=== PATIENT | female | born 1945 | race African-American/Black ===

== ENCOUNTER 2018-04-07 15:02 | Inpatient (IN) ==
[2018-04-07] MEDS ORDERED: PROMETHAZINE 25 MG/1 ML VIAL IM PRN (15:13)
[2018-04-07] MEDS ORDERED: MAGNESIUM HYDROXIDE SUSP 30 ML UDCUP PO PRN (15:13)
[2018-04-07] MEDS ORDERED: ONDANSETRON 4 MG/2 ML VIAL IV PRN (15:13)
[2018-04-07] MEDS ORDERED: cloNIDine 0.1 MG TABLET PO ONE (15:24)
[2018-04-07] MEDS ORDERED: SODIUM CHLORIDE 0.45% 1,000 ML IV SCH (15:30)
[2018-04-07] MEDS ORDERED: FUROSEMIDE 40 MG/4 ML VIAL IV ONE (15:54)
[2018-04-07] MEDS ORDERED: ENOXAPARIN 40 MG/0.4 ML SYRINGE SUBCUT ONE (16:53)
[2018-04-07 18:01] LABS: Basophils % 0.2 % (0.0-0.8); Eosinophils # 0.1 10*3/uL (0.0-0.87); Eosinophils % 1.7 % (0.00-10.9); Hematocrit 39.3 VOL% (35.7-47.0); Hemoglobin 11.9 GM/DL (12.0-16.0); Immature Granulocytes % 0.5 %; Immature Granulocytes Absolute 0.03 #; Lymphocytes # 1.3 10*3/uL (1.4-4.0); Lymphocytes % 19.4 % (21.3-54.2); Mean Corpuscular HGB Conc 30.3 GM/DL (32-36); Mean Corpuscular Hemoglobin 26 PG (27-34); Mean Corpuscular Volume 84.9 FL (87-102); Mean Platelet Volume 10.5 FL (9.6-12.0); Monocytes # 0.4 10*3/uL (0.11-0.8); Monocytes % 6.5 % (1.7-12.7); Neutrophils # 4.6 10*3/uL (1.4-7.4); Neutrophils % 71.7 % (38.7-73.9); Platelet Count 248 T/CUMM (130-400); Red Blood Count 4.63 MC/CUMM (3.8-5.5); White Blood Count 6.4 T/CUMM (4-12)
[2018-04-07] MEDS: AZITHROMYCIN INJ 250 MG in SODIUM CHLORIDE 0.9% 250 ML IV SCH (18:09)
[2018-04-07 18:21] LABS: Bilirubin,Total 0.6 MG/DL (0.2-1.0); Calcium 9.4 MG/DL (8.5-10.1); Osmolality,Calculated 281.1 MOS/KG (273-304); Potassium 3.2 MMOL/L (3.5-5.1); Total Protein 7.9 G/DL (6.4-8.3)
[2018-04-07] MEDS: ALBUTEROL/IPRATROPIUM 3 ML NEB RESP TX SCH (19:57)
[2018-04-07] MEDS: hydrALAZINE 25 MG TABLET PO SCH (21:09)
[2018-04-07] MEDS: FAMOTIDINE 20 MG TABLET PO SCH (21:09)
[2018-04-07] MEDS: cloNIDine 0.1 MG TABLET PO SCH (21:09)
[2018-04-07] MEDS: ENOXAPARIN 40 MG/0.4 ML SYRINGE SUBCUT SCH (21:09)
[2018-04-07] MEDS: DOCUSATE SODIUM 100 MG CAPSULE PO SCH (21:12)
[2018-04-07] MEDS: NITROGLYCERIN 2% OINT 1 INCH/GM PACK TOP SCH (21:13)
[2018-04-07] MEDS ORDERED: POTASSIUM CHLORIDE 20 MEQ TABLET PO ONE (21:40)
[2018-04-07] MEDS ORDERED: MAGNESIUM SULF RIDER 2 GM in PREMIX 1 EACH IV ONE (21:40)
[2018-04-07] MEDS: hydrALAZINE 20 MG/1 ML VIAL IV ONE ×2 (22:24→22:51)
[2018-04-07] MEDS: cloNIDine 0.1 MG TABLET PO ONE ×2 (22:24→23:45)
[2018-04-07 23:34] LABS: Basophils % 0.2 % (0.0-0.8); Eosinophils # 0.2 10*3/uL (0.0-0.87); Hematocrit 36.6 VOL% (35.7-47.0); Hemoglobin 11.2 GM/DL (12.0-16.0); Immature Granulocytes % 0.4 %; Immature Granulocytes Absolute 0.03 #; Lymphocytes # 1.7 10*3/uL (1.4-4.0); Lymphocytes % 20.9 % (21.3-54.2); Mean Corpuscular HGB Conc 30.6 GM/DL (32-36); Mean Corpuscular Hemoglobin 26 PG (27-34); Mean Corpuscular Volume 85.1 FL (87-102); Mean Platelet Volume 10.9 FL (9.6-12.0); Monocytes # 0.6 10*3/uL (0.11-0.8); Monocytes % 7.3 % (1.7-12.7); Neutrophils # 5.7 10*3/uL (1.4-7.4); Neutrophils % 69.2 % (38.7-73.9); Platelet Count 235 T/CUMM (130-400); Red Cell Distribution Width 15.1 % (9.3-17.3); White Blood Count 8.2 T/CUMM (4-12)
[2018-04-07 23:43] LABS: PT Patient Result 10.5 SECS; Partial Thromboplastin Time 30.5 SECS (0-40)
[2018-04-07] MEDS: SODIUM CHLORIDE 0.9% 1,000 ML IV SCH (23:54)
[2018-04-07 23:56] LABS: Alanine Aminotransferase 10 U/L (13-56); Albumin 2.7 G/DL (3.4-5.0); Alkaline Phosphatase 108 U/L (45-117); Aspartate Amino Transferase 11 U/L (0-37); Bilirubin,Total < 0.39 MG/DL (0.2-1.0); Blood Urea Nitrogen 21 MG/DL (7-18); Glucose 104 MG/DL (74-106); Osmolality,Calculated 285.1 MOS/KG (273-304); Potassium 4.1 MMOL/L (3.5-5.1); Sodium 142 MMOL/L (136-145); Total Protein 6.6 G/DL (6.4-8.3)
[2018-04-08] MEDS: ACETAMINOPHEN 325 MG TABLET PO PRN (00:37)
[2018-04-08] MEDS: ALBUTEROL/IPRATROPIUM 3 ML NEB RESP TX SCH ×4 (01:55→19:35)
[2018-04-08] MEDS: traMADol 50 MG TABLET PO PRN ×2 (05:19→08:00)
[2018-04-08 05:46] LABS: Basophils % 0.3 % (0.0-0.8); Eosinophils % 0.4 % (0.00-10.9); Hematocrit 34.8 VOL% (35.7-47.0); Hemoglobin 10.8 GM/DL (12.0-16.0); Immature Granulocytes % 0.3 %; Immature Granulocytes Absolute 0.02 #; Lymphocytes # 1.2 10*3/uL (1.4-4.0); Lymphocytes % 16.9 % (21.3-54.2); Mean Corpuscular Hemoglobin 26 PG (27-34); Mean Corpuscular Volume 83.3 FL (87-102); Mean Platelet Volume 10.7 FL (9.6-12.0); Monocytes # 0.5 10*3/uL (0.11-0.8); Neutrophils # 5.4 10*3/uL (1.4-7.4); Neutrophils % 75.1 % (38.7-73.9); Platelet Count 216 T/CUMM (130-400); Red Blood Count 4.18 MC/CUMM (3.8-5.5); Red Cell Distribution Width 14.9 % (9.3-17.3); White Blood Count 7.2 T/CUMM (4-12)
[2018-04-08 06:00] LABS: Calcium 8.7 MG/DL (8.5-10.1); Osmolality,Calculated 279.5 MOS/KG (273-304); Potassium 3.2 MMOL/L (3.5-5.1)
[2018-04-08] MEDS: hydrALAZINE 20 MG/1 ML VIAL IV PRN (06:15)
[2018-04-08] MEDS: FAMOTIDINE 20 MG TABLET PO SCH ×2 (10:19→20:45)
[2018-04-08] MEDS: hydrALAZINE 25 MG TABLET PO SCH ×2 (10:19→20:45)
[2018-04-08] MEDS: ASPIRIN CHEW 81 MG TABLET PO SCH (10:19)
[2018-04-08] MEDS: NITROGLYCERIN 2% OINT 1 INCH/GM PACK TOP SCH ×2 (10:20→20:49)
[2018-04-08] MEDS: DOCUSATE SODIUM 100 MG CAPSULE PO SCH ×2 (10:20→20:45)
[2018-04-08] MEDS: cloNIDine 0.1 MG TABLET PO SCH ×2 (10:20→20:45)
[2018-04-08] MEDS: POTASSIUM CHLORIDE 20 MEQ TABLET PO SCH ×2 (10:20→20:45)
[2018-04-08] MEDS: DOXAZOSIN 1 MG TABLET PO SCH (10:25)
[2018-04-08] MEDS: POTASSIUM CHLORIDE RIDER 10 MEQ in PREMIX 1 EACH IV PRN ×4 (10:27→17:00)
[2018-04-08 13:57] LABS: Troponin I 0.031 NG/ML (0.00-0.045)
[2018-04-08] MEDS: PANTOPRAZOLE 40 MG TABLET PO SCH (16:59)
[2018-04-08] MEDS: AZITHROMYCIN INJ 250 MG in SODIUM CHLORIDE 0.9% 250 ML IV SCH (17:00)
[2018-04-08] MEDS: ENOXAPARIN 40 MG/0.4 ML SYRINGE SUBCUT SCH (20:45)
[2018-04-09] MEDS: SODIUM CHLORIDE 0.9% 1,000 ML IV SCH ×2 (00:03→23:48)
[2018-04-09] MEDS: ALBUTEROL/IPRATROPIUM 3 ML NEB RESP TX SCH ×4 (00:57→19:56)
[2018-04-09 04:54] LABS: Troponin I 0.026 NG/ML (0.00-0.045)
[2018-04-09 04:57] LABS: Risk Ratio 2.02
[2018-04-09 08:26] LABS: Osmolality,Calculated 277.5 MOS/KG (273-304); Potassium 4.2 MMOL/L (3.5-5.1)
[2018-04-09] MEDS: hydrALAZINE 25 MG TABLET PO SCH (09:46)
[2018-04-09] MEDS: DOCUSATE SODIUM 100 MG CAPSULE PO SCH ×2 (09:46→21:09)
[2018-04-09] MEDS: FAMOTIDINE 20 MG TABLET PO SCH ×2 (09:46→21:09)
[2018-04-09] MEDS: ASPIRIN CHEW 81 MG TABLET PO SCH (09:46)
[2018-04-09] MEDS: PANTOPRAZOLE 40 MG TABLET PO SCH (09:46)
[2018-04-09] MEDS: DOXAZOSIN 1 MG TABLET PO SCH (09:46)
[2018-04-09] MEDS: POTASSIUM CHLORIDE 20 MEQ TABLET PO SCH ×2 (09:46→21:10)
[2018-04-09] MEDS: cloNIDine 0.1 MG TABLET PO SCH ×3 (09:46→21:10)
[2018-04-09] MEDS: NITROGLYCERIN 2% OINT 1 INCH/GM PACK TOP SCH ×2 (09:47→21:09)
[2018-04-09] MEDS: ACETAMINOPHEN 325 MG TABLET PO PRN ×2 (12:15→18:33)
[2018-04-09] MEDS: hydrALAZINE 20 MG/1 ML VIAL IV PRN (12:17)
[2018-04-09] MEDS ORDERED: methylPREDNISolone SOD SUC 40 MG/1 ML VIAL IV ONE (13:21)
[2018-04-09] MEDS ORDERED: MAGNESIUM HYDROXIDE SUSP 30 ML UDCUP PO PRN (13:25)
[2018-04-09] MEDS: traMADol 50 MG TABLET PO PRN ×2 (17:05→22:57)
[2018-04-09] MEDS: AZITHROMYCIN INJ 250 MG in SODIUM CHLORIDE 0.9% 250 ML IV SCH (18:31)
[2018-04-09] MEDS: ENOXAPARIN 40 MG/0.4 ML SYRINGE SUBCUT SCH (21:10)
[2018-04-10] MEDS: ALBUTEROL/IPRATROPIUM 3 ML NEB RESP TX SCH ×4 (00:38→19:18)
[2018-04-10 04:28] LABS: Basophils % 0.3 % (0.0-0.8); Eosinophils % 0.2 % (0.00-10.9); Hematocrit 32.4 VOL% (35.7-47.0); Hemoglobin 9.9 GM/DL (12.0-16.0); Immature Granulocytes % 0.5 %; Immature Granulocytes Absolute 0.03 #; Lymphocytes # 1.3 10*3/uL (1.4-4.0); Mean Corpuscular HGB Conc 30.6 GM/DL (32-36); Mean Corpuscular Hemoglobin 26 PG (27-34); Mean Platelet Volume 11.4 FL (9.6-12.0); Monocytes # 0.5 10*3/uL (0.11-0.8); Neutrophils # 4.5 10*3/uL (1.4-7.4); Platelet Count 207 T/CUMM (130-400); Red Blood Count 3.81 MC/CUMM (3.8-5.5); Red Cell Distribution Width 15.3 % (9.3-17.3); White Blood Count 6.3 T/CUMM (4-12)
[2018-04-10 04:52] LABS: Albumin 3.1 G/DL (3.4-5.0); Bilirubin,Total 0.7 MG/DL (0.2-1.0); Calcium 8.4 MG/DL (8.5-10.1); Osmolality,Calculated 279.4 MOS/KG (273-304); Potassium 4.1 MMOL/L (3.5-5.1); Total Protein 6.5 G/DL (6.4-8.3)
[2018-04-10] MEDS ORDERED: cloNIDine 0.1 MG TABLET PO SCH (06:00)
[2018-04-10] MEDS ORDERED: LISINOPRIL 10 MG TABLET PO SCH (09:00)
[2018-04-10] MEDS: DOCUSATE SODIUM 100 MG CAPSULE PO SCH ×2 (09:02→21:29)
[2018-04-10] MEDS: DOXAZOSIN 1 MG TABLET PO SCH (09:02)
[2018-04-10] MEDS: cloNIDine 0.1 MG TABLET PO SCH ×2 (09:02→21:28)
[2018-04-10] MEDS: ASPIRIN CHEW 81 MG TABLET PO SCH (09:02)
[2018-04-10] MEDS: FAMOTIDINE 20 MG TABLET PO SCH ×2 (09:02→21:28)
[2018-04-10] MEDS: POTASSIUM CHLORIDE 20 MEQ TABLET PO SCH ×2 (09:02→21:28)
[2018-04-10] MEDS: PANTOPRAZOLE 40 MG TABLET PO SCH (09:03)
[2018-04-10] MEDS: NITROGLYCERIN 2% OINT 1 INCH/GM PACK TOP SCH ×2 (09:08→21:29)
[2018-04-10 14:04] LABS: Apearance,Urine CLEAR (Clear); Bilirubin,Urine Negative (Negative); Blood, Urine Negative (Negative); Glucose,Urine (UA) Negative (Negative); Ketones,Urine Negative (Negative); Mucus,Urine Moderate /LPF (Occasional); Nitrite,Urine Negative (Negative); Protein,Urine 100 MG/DL; RBC,Urine 1 /HPF (0-4); Squamous Epithelial Cell,Urine Occasional /HPF (0-10); Urine Color Yellow (Yellow); Urine Specific Gravity 1.017 (1.001-1.035); Urine Urobilinogen < 2.0 EU/DL (0.2-1.0); WBC,Urine 4 /HPF (0-6)
[2018-04-10] MEDS ORDERED: LABETALOL 20 MG/4 ML SYRINGE IV PRN (15:10)
[2018-04-10] MEDS: hydroCHLOROthiazide 12.5 MG CAPSULE PO SCH (17:40)
[2018-04-10] MEDS: AZITHROMYCIN INJ 250 MG in SODIUM CHLORIDE 0.9% 250 ML IV SCH (17:40)
[2018-04-10] MEDS: LISINOPRIL 10 MG TABLET PO SCH (21:28)
[2018-04-10] MEDS: ENOXAPARIN 40 MG/0.4 ML SYRINGE SUBCUT SCH (21:29)
[2018-04-10] MEDS: SODIUM CHLORIDE 0.9% 1,000 ML IV SCH (22:56)
[2018-04-11] MEDS: ALBUTEROL/IPRATROPIUM 3 ML NEB RESP TX SCH ×4 (00:43→19:38)
[2018-04-11] MEDS: DOXAZOSIN 1 MG TABLET PO SCH (08:55)
[2018-04-11] MEDS: FAMOTIDINE 20 MG TABLET PO SCH ×2 (08:55→20:41)
[2018-04-11] MEDS: ASPIRIN CHEW 81 MG TABLET PO SCH (08:55)
[2018-04-11] MEDS: PANTOPRAZOLE 40 MG TABLET PO SCH (08:55)
[2018-04-11] MEDS: POTASSIUM CHLORIDE 20 MEQ TABLET PO SCH ×2 (08:55→20:42)
[2018-04-11] MEDS: DOCUSATE SODIUM 100 MG CAPSULE PO SCH ×2 (08:55→20:41)
[2018-04-11] MEDS: hydroCHLOROthiazide 12.5 MG CAPSULE PO SCH (08:55)
[2018-04-11] MEDS: LISINOPRIL 10 MG TABLET PO SCH ×2 (08:56→20:42)
[2018-04-11] MEDS: cloNIDine 0.1 MG TABLET PO SCH ×2 (08:56→20:41)
[2018-04-11] MEDS: NITROGLYCERIN 2% OINT 1 INCH/GM PACK TOP SCH ×2 (09:02→20:43)
[2018-04-11] MEDS: SPIRONOLACTONE 25 MG TABLET PO SCH (10:47)
[2018-04-11] MEDS: AZITHROMYCIN INJ 250 MG in SODIUM CHLORIDE 0.9% 250 ML IV SCH (17:01)
[2018-04-11] MEDS: ENOXAPARIN 40 MG/0.4 ML SYRINGE SUBCUT SCH (20:56)
[2018-04-12] MEDS: SODIUM CHLORIDE 0.9% 1,000 ML IV SCH ×2 (00:32→23:45)
[2018-04-12] MEDS: ALBUTEROL/IPRATROPIUM 3 ML NEB RESP TX SCH ×4 (01:51→19:50)
[2018-04-12] MEDS: DOXAZOSIN 1 MG TABLET PO SCH (08:34)
[2018-04-12] MEDS: cloNIDine 0.1 MG TABLET PO SCH ×4 (08:35→21:06)
[2018-04-12] MEDS: PANTOPRAZOLE 40 MG TABLET PO SCH (08:35)
[2018-04-12] MEDS: ASPIRIN CHEW 81 MG TABLET PO SCH (08:35)
[2018-04-12] MEDS: NITROGLYCERIN 2% OINT 1 INCH/GM PACK TOP SCH (08:35)
[2018-04-12] MEDS: LISINOPRIL 10 MG TABLET PO SCH (08:35)
[2018-04-12] MEDS: FAMOTIDINE 20 MG TABLET PO SCH ×2 (08:36→21:04)
[2018-04-12] MEDS: DOCUSATE SODIUM 100 MG CAPSULE PO SCH ×2 (08:36→21:06)
[2018-04-12] MEDS: SPIRONOLACTONE 25 MG TABLET PO SCH (08:36)
[2018-04-12] MEDS: POTASSIUM CHLORIDE 20 MEQ TABLET PO SCH ×2 (08:36→21:04)
[2018-04-12] MEDS: hydroCHLOROthiazide 12.5 MG CAPSULE PO SCH (08:36)
[2018-04-12] MEDS ORDERED: CYANOCOBALAMIN 1000 MCG/1 ML VIAL IM ONE (08:58)
[2018-04-12] MEDS: CARVEDILOL 6.25 MG TABLET PO SCH ×2 (12:42→21:08)
[2018-04-12] MEDS: AZITHROMYCIN INJ 250 MG in SODIUM CHLORIDE 0.9% 250 ML IV SCH (18:22)
[2018-04-12] MEDS: LISINOPRIL 20 MG TABLET PO SCH (21:04)
[2018-04-12] MEDS: ENOXAPARIN 40 MG/0.4 ML SYRINGE SUBCUT SCH (21:06)
[2018-04-13] MEDS: ALBUTEROL/IPRATROPIUM 3 ML NEB RESP TX SCH ×4 (01:04→18:50)
[2018-04-13 04:09] LABS: Basophils % 0.6 % (0.0-0.8); Eosinophils # 0.4 10*3/uL (0.0-0.87); Eosinophils % 6.3 % (0.00-10.9); Hematocrit 35.4 VOL% (35.7-47.0); Hemoglobin 10.8 GM/DL (12.0-16.0); Immature Granulocytes % 0.3 %; Immature Granulocytes Absolute 0.02 #; Mean Corpuscular HGB Conc 30.5 GM/DL (32-36); Mean Corpuscular Hemoglobin 26 PG (27-34); Mean Corpuscular Volume 84.3 FL (87-102); Mean Platelet Volume 11.2 FL (9.6-12.0); Monocytes # 0.6 10*3/uL (0.11-0.8); Monocytes % 9.2 % (1.7-12.7); Neutrophils # 3.3 10*3/uL (1.4-7.4); Neutrophils % 51.6 % (38.7-73.9); Platelet Count 222 T/CUMM (130-400); White Blood Count 6.3 T/CUMM (4-12)
[2018-04-13 04:38] LABS: Calcium 8.6 MG/DL (8.5-10.1); Osmolality,Calculated 283.1 MOS/KG (273-304)
[2018-04-13] MEDS ORDERED: cloNIDine 0.1 MG TABLET PO ONE ×2 (05:00→22:00)
[2018-04-13] MEDS: FAMOTIDINE 20 MG TABLET PO SCH ×2 (08:48→20:37)
[2018-04-13] MEDS: DOXAZOSIN 4 MG TABLET PO SCH (08:51)
[2018-04-13] MEDS: hydroCHLOROthiazide 12.5 MG CAPSULE PO SCH (08:51)
[2018-04-13] MEDS: DOCUSATE SODIUM 100 MG CAPSULE PO SCH ×2 (08:52→20:37)
[2018-04-13] MEDS: LISINOPRIL 20 MG TABLET PO SCH (08:52)
[2018-04-13] MEDS: CARVEDILOL 6.25 MG TABLET PO SCH ×2 (08:53→20:37)
[2018-04-13] MEDS: POTASSIUM CHLORIDE 20 MEQ TABLET PO SCH ×2 (08:55→20:37)
[2018-04-13] MEDS: SPIRONOLACTONE 25 MG TABLET PO SCH (08:58)
[2018-04-13] MEDS: ASPIRIN CHEW 81 MG TABLET PO SCH (08:59)
[2018-04-13] MEDS: PANTOPRAZOLE 40 MG TABLET PO SCH (08:59)
[2018-04-13] MEDS: AZITHROMYCIN INJ 250 MG in SODIUM CHLORIDE 0.9% 250 ML IV SCH (18:18)
[2018-04-13] MEDS: ENOXAPARIN 40 MG/0.4 ML SYRINGE SUBCUT SCH (20:43)
[2018-04-13] MEDS: ACETAMINOPHEN 325 MG TABLET PO PRN (20:43)
[2018-04-13] MEDS: SODIUM CHLORIDE 0.9% 1,000 ML IV SCH (22:09)
[2018-04-13] MEDS: traMADol 50 MG TABLET PO PRN (23:11)
[2018-04-14] MEDS: ALBUTEROL/IPRATROPIUM 3 ML NEB RESP TX SCH ×4 (00:20→19:39)
[2018-04-14 04:37] LABS: Basophils % 0.7 % (0.0-0.8); Eosinophils # 0.3 10*3/uL (0.0-0.87); Eosinophils % 4.4 % (0.00-10.9); Hematocrit 35.3 VOL% (35.7-47.0); Hemoglobin 10.9 GM/DL (12.0-16.0); Immature Granulocytes % 0.3 %; Immature Granulocytes Absolute 0.02 #; Lymphocytes # 1.5 10*3/uL (1.4-4.0); Lymphocytes % 24.6 % (21.3-54.2); Mean Corpuscular HGB Conc 30.9 GM/DL (32-36); Mean Corpuscular Hemoglobin 27 PG (27-34); Mean Corpuscular Volume 85.7 FL (87-102); Mean Platelet Volume 11.1 FL (9.6-12.0); Monocytes # 0.5 10*3/uL (0.11-0.8); Monocytes % 8.5 % (1.7-12.7); Neutrophils # 3.8 10*3/uL (1.4-7.4); Neutrophils % 61.5 % (38.7-73.9); Platelet Count 219 T/CUMM (130-400); Red Blood Count 4.12 MC/CUMM (3.8-5.5); Red Cell Distribution Width 14.8 % (9.3-17.3); White Blood Count 6.1 T/CUMM (4-12)
[2018-04-14 04:57] LABS: Calcium 8.5 MG/DL (8.5-10.1); Osmolality,Calculated 283.3 MOS/KG (273-304); Potassium 4.1 MMOL/L (3.5-5.1)
[2018-04-14] MEDS: FAMOTIDINE 20 MG TABLET PO SCH ×2 (08:25→20:53)
[2018-04-14] MEDS: hydroCHLOROthiazide 12.5 MG CAPSULE PO SCH (08:25)
[2018-04-14] MEDS: DOXAZOSIN 4 MG TABLET PO SCH (08:25)
[2018-04-14] MEDS: DOCUSATE SODIUM 100 MG CAPSULE PO SCH ×2 (08:25→20:53)
[2018-04-14] MEDS: SPIRONOLACTONE 25 MG TABLET PO SCH (08:25)
[2018-04-14] MEDS: CARVEDILOL 6.25 MG TABLET PO SCH ×2 (08:25→20:53)
[2018-04-14] MEDS: PANTOPRAZOLE 40 MG TABLET PO SCH (08:26)
[2018-04-14] MEDS: POTASSIUM CHLORIDE 20 MEQ TABLET PO SCH ×2 (08:26→20:53)
[2018-04-14] MEDS: ASPIRIN CHEW 81 MG TABLET PO SCH (08:26)
[2018-04-14] MEDS: MINOXIDIL 2.5 MG TABLET PO SCH ×2 (09:12→20:52)
[2018-04-14] MEDS: cloNIDine 0.1 MG TABLET PO SCH ×2 (09:13→20:52)
[2018-04-14] MEDS: AZITHROMYCIN INJ 250 MG in SODIUM CHLORIDE 0.9% 250 ML IV SCH (17:06)
[2018-04-14] MEDS: ENOXAPARIN 40 MG/0.4 ML SYRINGE SUBCUT SCH (20:56)
[2018-04-15] MEDS: SODIUM CHLORIDE 0.9% 1,000 ML IV SCH ×2 (00:03→22:31)
[2018-04-15] MEDS: ALBUTEROL/IPRATROPIUM 3 ML NEB RESP TX SCH ×4 (01:06→19:36)
[2018-04-15 04:24] LABS: Basophils % 0.4 % (0.0-0.8); Eosinophils # 0.3 10*3/uL (0.0-0.87); Hematocrit 33.5 VOL% (35.7-47.0); Hemoglobin 10.3 GM/DL (12.0-16.0); Immature Granulocytes % 0.4 %; Immature Granulocytes Absolute 0.02 #; Lymphocytes # 1.1 10*3/uL (1.4-4.0); Lymphocytes % 21.1 % (21.3-54.2); Mean Corpuscular HGB Conc 30.7 GM/DL (32-36); Mean Corpuscular Hemoglobin 26 PG (27-34); Mean Corpuscular Volume 85.7 FL (87-102); Mean Platelet Volume 11.6 FL (9.6-12.0); Monocytes # 0.6 10*3/uL (0.11-0.8); Monocytes % 11.1 % (1.7-12.7); Neutrophils # 3.4 10*3/uL (1.4-7.4); Platelet Count 221 T/CUMM (130-400); Red Blood Count 3.91 MC/CUMM (3.8-5.5); Red Cell Distribution Width 14.8 % (9.3-17.3); White Blood Count 5.4 T/CUMM (4-12)
[2018-04-15 04:37] LABS: Calcium 8.5 MG/DL (8.5-10.1); Osmolality,Calculated 280.3 MOS/KG (273-304); Potassium 3.8 MMOL/L (3.5-5.1)
[2018-04-15] MEDS: POTASSIUM CHLORIDE 20 MEQ TABLET PO SCH ×2 (08:33→21:20)
[2018-04-15] MEDS: hydroCHLOROthiazide 12.5 MG CAPSULE PO SCH (08:33)
[2018-04-15] MEDS: FAMOTIDINE 20 MG TABLET PO SCH ×2 (08:33→21:20)
[2018-04-15] MEDS: MINOXIDIL 2.5 MG TABLET PO SCH ×2 (08:33→21:20)
[2018-04-15] MEDS: CLOPIDOGREL 75 MG TABLET PO SCH (08:33)
[2018-04-15] MEDS: DOXAZOSIN 4 MG TABLET PO SCH (08:33)
[2018-04-15] MEDS: CARVEDILOL 6.25 MG TABLET PO SCH ×2 (08:34→21:20)
[2018-04-15] MEDS: cloNIDine 0.1 MG TABLET PO SCH ×2 (08:34→21:20)
[2018-04-15] MEDS: SPIRONOLACTONE 25 MG TABLET PO SCH (08:34)
[2018-04-15] MEDS: DOCUSATE SODIUM 100 MG CAPSULE PO SCH ×2 (08:34→21:25)
[2018-04-15] MEDS: PANTOPRAZOLE 40 MG TABLET PO SCH (08:34)
[2018-04-15] MEDS: AZITHROMYCIN INJ 250 MG in SODIUM CHLORIDE 0.9% 250 ML IV SCH (17:47)
[2018-04-15] MEDS: ENOXAPARIN 40 MG/0.4 ML SYRINGE SUBCUT SCH (21:23)
[2018-04-16] MEDS: ALBUTEROL/IPRATROPIUM 3 ML NEB RESP TX SCH ×2 (00:43→07:35)
[2018-04-16 05:45] LABS: Basophils % 0.6 % (0.0-0.8); Eosinophils # 0.2 10*3/uL (0.0-0.87); Eosinophils % 4.2 % (0.00-10.9); Hematocrit 33.8 VOL% (35.7-47.0); Hemoglobin 10.5 GM/DL (12.0-16.0); Immature Granulocytes % 0.2 %; Immature Granulocytes Absolute 0.01 #; Lymphocytes # 1.7 10*3/uL (1.4-4.0); Lymphocytes % 33.3 % (21.3-54.2); Mean Corpuscular HGB Conc 31.1 GM/DL (32-36); Mean Corpuscular Hemoglobin 27 PG (27-34); Mean Corpuscular Volume 85.4 FL (87-102); Mean Platelet Volume 11.3 FL (9.6-12.0); Monocytes # 0.6 10*3/uL (0.11-0.8); Monocytes % 12.3 % (1.7-12.7); Neutrophils # 2.5 10*3/uL (1.4-7.4); Neutrophils % 49.4 % (38.7-73.9); Platelet Count 222 T/CUMM (130-400); Red Blood Count 3.96 MC/CUMM (3.8-5.5); Red Cell Distribution Width 14.7 % (9.3-17.3); White Blood Count 5.1 T/CUMM (4-12)
[2018-04-16 05:57] LABS: Calcium 8.5 MG/DL (8.5-10.1); Osmolality,Calculated 281.1 MOS/KG (273-304); Potassium 3.5 MMOL/L (3.5-5.1)
[2018-04-16 07:46] VITALS: BP 157/78
[2018-04-16] MEDS: DOXAZOSIN 4 MG TABLET PO SCH (08:41)
[2018-04-16] MEDS: PANTOPRAZOLE 40 MG TABLET PO SCH (08:41)
[2018-04-16] MEDS: MINOXIDIL 2.5 MG TABLET PO SCH (08:41)
[2018-04-16] MEDS: FAMOTIDINE 20 MG TABLET PO SCH (08:41)
[2018-04-16] MEDS: CLOPIDOGREL 75 MG TABLET PO SCH (08:41)
[2018-04-16] MEDS: hydroCHLOROthiazide 12.5 MG CAPSULE PO SCH (08:42)
[2018-04-16] MEDS: DOCUSATE SODIUM 100 MG CAPSULE PO SCH (08:42)
[2018-04-16] MEDS: SPIRONOLACTONE 25 MG TABLET PO SCH (08:42)
[2018-04-16] MEDS: CARVEDILOL 6.25 MG TABLET PO SCH (08:42)
[2018-04-16] MEDS: cloNIDine 0.1 MG TABLET PO SCH (08:42)
[2018-04-16] MEDS: POTASSIUM CHLORIDE 20 MEQ TABLET PO SCH (08:42)
== END 2018-04-16 11:23 | disposition home or self-care (01) | DRG 305 ==
LOC: N.CT 15:02 → UNDODEPREF 15:51 → N.2W 15:51 → N.TELEN 17:37
PROVIDERS: ADMIT Internal Medicine; ATTEND Internal Medicine

== ENCOUNTER 2021-03-18 00:41 | Observation (INO) ==
[2021-03-18] MEDS ORDERED: NITROGLYCERIN SL 0.4 MG TABLET SL PRN (01:10)
[2021-03-18 01:24] LABS: Basophils % 0.5 % (0.0-0.8); Eosinophils # 0.1 10*3/uL (0.0-0.87); Eosinophils % 2.3 % (0.00-10.9); Hematocrit 37.7 VOL% (35.7-47.0); Hemoglobin 12.1 GM/DL (12.0-16.0); Immature Granulocytes % 0.4 %; Immature Granulocytes Absolute 0.02 #; Lymphocytes # 1.4 10*3/uL (1.4-4.0); Lymphocytes % 24.9 % (21.3-54.2); Mean Corpuscular HGB Conc 32.1 GM/DL (32-36); Mean Corpuscular Volume 85.7 FL (87-102); Mean Platelet Volume 10.1 FL (9.6-12.0); Monocytes % 8.8 % (1.7-12.7); Neutrophils % 63.1 % (38.7-73.9); Platelet Count 202 T/CUMM (130-400); Red Cell Distribution Width 14.6 % (9.3-17.3); White Blood Count 5.7 T/CUMM (4-12)
[2021-03-18] MEDS ORDERED: ONDANSETRON 4 MG/2 ML VIAL IV PRN (01:28)
[2021-03-18] MEDS ORDERED: ACETAMINOPHEN 325 MG TABLET PO PRN (01:28)
[2021-03-18 01:34] LABS: Albumin 3.8 G/DL (3.4-5.0); Bilirubin,Total 0.6 MG/DL (0.20-1.00); Osmolality,Calculated 278.7 MOS/KG (273-304); Potassium 4.1 MMOL/L (3.5-5.1); Total Protein 7.4 G/DL (6.4-8.2)
[2021-03-18 04:02] LABS: PT Patient Result 11.4 SECS (10.5-12.0)
[2021-03-18 05:53] LABS: Basophils % 0.4 % (0.0-0.8); Eosinophils # 0.1 10*3/uL (0.0-0.87); Eosinophils % 2.1 % (0.00-10.9); Hematocrit 34.3 VOL% (35.7-47.0); Hemoglobin 11.1 GM/DL (12.0-16.0); Immature Granulocytes % 0.2 %; Immature Granulocytes Absolute 0.01 #; Lymphocytes # 1.4 10*3/uL (1.4-4.0); Lymphocytes % 29.8 % (21.3-54.2); Mean Corpuscular HGB Conc 32.4 GM/DL (32-36); Mean Corpuscular Volume 85.1 FL (87-102); Mean Platelet Volume 10.7 FL (9.6-12.0); Monocytes % 10.1 % (1.7-12.7); Neutrophils % 57.4 % (38.7-73.9); Platelet Count 193 T/CUMM (130-400); Red Blood Count 4.03 MC/CUMM (3.8-5.5); Red Cell Distribution Width 14.5 % (9.3-17.3); White Blood Count 4.8 T/CUMM (4-12)
[2021-03-18 06:19] LABS: Albumin 3.3 G/DL (3.4-5.0); Bilirubin,Total 0.5 MG/DL (0.20-1.00); Calcium 8.7 MG/DL (8.5-10.1); Osmolality,Calculated 283.3 MOS/KG (273-304); Potassium 3.8 MMOL/L (3.5-5.1); Total Protein 6.6 G/DL (6.4-8.2)
[2021-03-18] MEDS: PANTOPRAZOLE 40 MG TABLET PO SCH (09:02)
[2021-03-18] MEDS: ASPIRIN CHEW 81 MG TABLET PO SCH (11:55)
[2021-03-18] MEDS: carvediloL 6.25 MG TABLET PO SCH ×2 (11:56→21:56)
[2021-03-18] MEDS: LOSARTAN 25 MG TABLET PO SCH ×2 (12:00→21:56)
[2021-03-18] MEDS: CLOPIDOGREL 75 MG TABLET PO SCH (12:02)
[2021-03-18] MEDS: amLODIPine 5 MG TABLET PO SCH (12:50)
[2021-03-18] MEDS: DOXAZOSIN 4 MG TABLET PO SCH (13:14)
[2021-03-18] MEDS: minoxidiL 2.5 MG TABLET PO SCH ×2 (13:15→21:56)
[2021-03-18] MEDS: cloNIDine 0.1 MG TABLET PO SCH ×2 (15:45→21:21)
[2021-03-18] MEDS: GABAPENTIN 100 MG CAPSULE PO SCH ×2 (15:45→21:21)
[2021-03-18] MEDS: ACETAMINOPHEN 325 MG TABLET PO SCH ×2 (16:25→21:21)
[2021-03-19 05:11] LABS: Basophils % 0.4 % (0.0-0.8); Eosinophils # 0.2 10*3/uL (0.0-0.87); Eosinophils % 3.7 % (0.00-10.9); Hematocrit 34.6 VOL% (35.7-47.0); Hemoglobin 11.1 GM/DL (12.0-16.0); Immature Granulocytes % 0.2 %; Immature Granulocytes Absolute 0.01 #; Lymphocytes # 1.6 10*3/uL (1.4-4.0); Lymphocytes % 33.8 % (21.3-54.2); Mean Corpuscular HGB Conc 32.1 GM/DL (32-36); Mean Corpuscular Volume 86.9 FL (87-102); Mean Platelet Volume 10.7 FL (9.6-12.0); Monocytes % 11.3 % (1.7-12.7); Neutrophils % 50.6 % (38.7-73.9); Platelet Count 194 T/CUMM (130-400); Red Blood Count 3.98 MC/CUMM (3.8-5.5); Red Cell Distribution Width 14.5 % (9.3-17.3); White Blood Count 4.6 T/CUMM (4-12)
[2021-03-19 05:28] LABS: Calcium 8.3 MG/DL (8.5-10.1); Osmolality,Calculated 284.1 MOS/KG (273-304); Potassium 3.8 MMOL/L (3.5-5.1)
[2021-03-19] MEDS: DOXAZOSIN 4 MG TABLET PO SCH (09:24)
[2021-03-19] MEDS: cloNIDine 0.1 MG TABLET PO SCH ×2 (09:24→15:17)
[2021-03-19] MEDS: minoxidiL 2.5 MG TABLET PO SCH (09:24)
[2021-03-19] MEDS: ASPIRIN CHEW 81 MG TABLET PO SCH (09:24)
[2021-03-19] MEDS: LOSARTAN 25 MG TABLET PO SCH (09:24)
[2021-03-19] MEDS: ACETAMINOPHEN 325 MG TABLET PO SCH (09:24)
[2021-03-19] MEDS: carvediloL 6.25 MG TABLET PO SCH (09:25)
[2021-03-19] MEDS: PANTOPRAZOLE 40 MG TABLET PO SCH (09:25)
[2021-03-19] MEDS: amLODIPine 5 MG TABLET PO SCH (09:25)
[2021-03-19] MEDS: GABAPENTIN 100 MG CAPSULE PO SCH ×2 (09:25→15:17)
[2021-03-19] MEDS: CLOPIDOGREL 75 MG TABLET PO SCH (09:25)
[2021-03-19 16:09] VITALS: BP 137/60
== END 2021-03-19 16:17 | disposition home health service (06) ==
LOC: N.EDINP 00:41 → N.ED 00:41 → N.TELEN 21:14
PROVIDERS: ADMIT Internal Medicine; ATTEND Internal Medicine